=== PATIENT | female | born 1995 | race Caucasian/White ===

== ENCOUNTER 2016-10-06 22:22 | Emergency (ER) | payer SELFPAY ==
[2016-10-06 22:27] VITALS: BP 131/69
[2016-10-06] MEDS ORDERED: HYDROcodone/ACETAMIN 5-325 MG* 1 TAB PO ONE (22:53)
[2016-10-06] MEDS ORDERED: Ketorolac INJ* 60 MG/2 ML VIAL IM ONE (22:53)
--- NOTE | 2016-10-07 07:56 | RAD ---
HISTORY: Fall, right hip pain COMPARISONS: None VIEWS: 3, Frontal view of the pelvis with frontal and frog-leg views of the right hip FINDINGS: BONE DENSITY: Normal. BONES: There is no displaced fracture. JOINTS: There is no arthropathy. ALIGNMENT: There is no dislocation. SOFT TISSUES: Unremarkable. OTHER FINDINGS: None. IMPRESSION: NO RADIOGRAPHIC EVIDENCE FOR HIP FRACTURE. X-RAYS MAY BE NEGATIVE WITH NONDISPLACED HIP FRACTURE, IF THERE IS PERSISTENT CLINICAL CONCERN, RECOMMEND CONSIDERATION OF MRI. IN THE SETTING OF CONTRAINDICATION TO MRI OR LIMITATION IN EMERGENT ACCESS TO MRI, CT WOULD BE SUGGESTED.
--- NOTE | 2016-10-07 07:56 | RAD ---
HISTORY: Right knee injury COMPARISONS: None VIEWS: 4, Frontal, lateral, axial, and oblique views of the right main FINDINGS: BONE DENSITY: Normal. BONES: There is no displaced fracture. JOINTS: There is no arthropathy. There is no suprapatellar joint effusion or lipohemarthrosis. ALIGNMENT: There is no dislocation. SOFT TISSUES: Unremarkable. OTHER FINDINGS: None. IMPRESSION: NO ACUTE OSSEOUS INJURY. IF SYMPTOMS PERSIST, RECOMMEND REPEAT IMAGING.
--- NOTE | 2016-10-08 17:29 | ED ---
Lower Extremity - HPI Summary HPI Summary: Patient is an otherwise healthy 21y0 F presenting with right hip and knee pain after falling from her horse. She has not taken anything for the pain. Pain is 8/10 and does not radiate. Denies numbness, tingling, color or temperature changes. She is ambulating, but with pain. Denies radiation of pain, hitting head or LOC. No deformities noted. - History of Current Complaint Chief Complaint: EDExtremityLower Stated Complaint: RT LEG INJURY Time Seen by Provider: 10/06/16 22:31 Hx Obtained From: Patient Mechanism Of Injury: Direct Blow Onset of Pain: Immediate Onset/Duration: Hours Severity Initially: Moderate Severity Currently: Moderate Pain Intensity: 6 Pain Scale Used: 0-10 Numeric Timing: Constant Location: Is Discrete @ - right hip and right knee Character Of Pain: Aching Associated Signs And Symptoms: Positive: Negative Aggravating Factor(s): Standing, Ambulation, Movement, Weight Bearing Alleviating Factor(s): Rest Able to Bear Weight: Yes - Risk Factors Gout Risk Factors: Negative DVT Risk Factors: Negative Septic Arthritis Risk Factor: Negative - Allergies/Home Medications Allergies/Adverse Reactions: Allergies Allergy/AdvReac Type Severity Reaction Status Date / Time No Known Allergies Allergy Verified 10/16/15 18:37 PMH/Surg Hx/FS Hx/Imm Hx Previously Healthy: Yes Endocrine/Hematology History: Denies: Hx Anticoagulant Therapy, Hx Diabetes Cardiovascular History: Denies: Hx Hypertension History: Denies: Hx Renal Disease - Immunization History Hx Pertussis Vaccination: No Immunizations Up to Date: Unable to Obtain/Confirm Infectious Disease History: No Infectious Disease History: Denies: Traveled Outside the [place] in Last 30 Days - Social History Occupation: Unemployed Lives: With Family Alcohol Use: None Hx Substance Use: No Substance Use Type: Reports: None Hx Tobacco Use: Yes - half pack per day Smoking Status (MU): Light Every Day Tobacco Smoker Type: Cigarettes Have You Smoked in the Last Year: Yes Review of Systems Constitutional: Negative Eyes: Negative Cardiovascular: Negative Respiratory: Negative Gastrointestinal: Negative Positive: no symptoms reported, see HPI Positive: Arthralgia, Myalgia Skin: Negative Neurological: Negative Psychological: Normal All Other Systems Reviewed And Are Negative: Yes Physical Exam Triage Information Reviewed: Yes Vital Signs On Initial Exam: Initial Vitals Temp Pulse Resp BP Pulse Ox 97.8 F 95 22 131/69 100 07/07/17 22:23 10/06/16 22:23 10/06/16 22:23 10/06/16 22:23 10/06/16 22:23 Vital Signs Reviewed: Yes Appearance: Positive: Well-Appearing, Well-Nourished Skin: Positive: Warm, Skin Color Reflects Adequate Perfusion Head/Face: Positive: Normal Head/Face Inspection Eyes: Positive: Normal, LOIS ENT: Positive: Hearing grossly normal Neck: Positive: Supple, No Lymphadenopathy Respiratory/Lung Sounds: Positive: Clear to Auscultation, Breath Sounds Present Cardiovascular: Positive: Normal, RRR Musculoskeletal: Positive: Pain @ - right hip and palpation, knee on palpation Neurological: Positive: Normal, Sensory/Motor Intact, Alert, Oriented to Person Place, Time, Speech Normal Psychiatric: Positive: Normal Diagnostics - Vital Signs Vital Signs Temp Pulse Resp BP Pulse Ox 10/06/16 22:23 97.8 F 95 22 131/69 100 - Laboratory Lab Statement: Any lab studies that have been ordered have been reviewed, and results considered in the medical decision making process. Lower Extremity Course/Dx - Course Course Of Treatment: Patient sent to imaging. Xray negative for fracture or other acute findings. Hip xrays WNL. Knee was estefany wrapped to patient comfort to allow for immobilization for this period of time. Patient given orthopedic follow up in 5-7 days. Encouraged Ibuprofen 600mg three times daily with meals for pain. Return precautions given. Educated patient regarding ankle injuries and healing time and the possibility of further evaluation and imaging as orthopedist sees fit. - Diagnoses Differential Diagnosis/HQI/PQRI: Positive: Dislocation, Fracture (Closed), Fracture (Open), Sprain, Strain Provider Diagnoses: Fall from horse Discharge - Discharge Plan Condition: Stable Disposition: HOME Patient Education Materials: Hip Pain (ED) Referrals: No Primary Care Phys,NOPCP [Primary Care Provider] - Additional Instructions: Follow up with PCP Ibuprofen 600mg three times daily Images - Images Full Body (No Head): 1 - pain on palpation with standing and ambulation 2 - same as above
== END 2016-10-07 00:43 | disposition home or self-care (01) ==
LOC: ED 22:22
DX: M25.551 Pain in right hip (principal); M25.561 Pain in right knee; V80.010A Animal-rider injured by fall from or being thrown from horse in noncollision accident, initial encounter; F17.210 Nicotine dependence, cigarettes, uncomplicated
CPT/HCPCS: 96372; 99282; J1885

== ENCOUNTER → 2016-11-13 22:27 | Emergency (ER) | payer SELFPAY ==
[~2016-11-13 22:27] MED LIST: Amoxicillin PO (*) 250 MG CAP PO ONE; HYDROcodone/ACETAMIN 5-325 MG* 1 TAB PO ONE; Ketorolac INJ* 60 MG/2 ML VIAL IM ONE; Rizatriptan (NF) 5 MG TAB PO ONE
--- NOTE | 2016-11-14 00:29 | ED ---
Throat Pain/Nasal Congestion - HPI Summary HPI Summary: Pt here w/ Lt lower tooth pain x 1 week, intolerable tonight. Pain is so bad, triggered a migraine which she reports is only successfully treated with maxalt. H/o migraines since injury to head by horse. Reports her wisdom teeth are coming in on Lt lower jaw and created a hole in her tooth where she's having pain now. Pain with eating, air exposure, etc. Radiating into jaw, ear and down neck. Feels hot and cold but no debbie fever. Denies discharge into mouth, nausea, vomiting, neck pain. She has tried oragel which was helping for a while but not tonight. She also been taking ibuprofen and acetaminophen w/ some relief but only brief. Reports she shoved a chewable tylenol into the hole in her tooth and that helped for a little while. Took 2 of her boyfriend's leftover anbx (bactrim?) w/o relief. - History of Current Complaint Chief Complaint: EDDentalPain Time Seen by Provider: 11/13/16 23:22 Hx Obtained From: Patient, Family/Compounding Technician - boyfriend - Allergies/Home Medications Allergies/Adverse Reactions: Allergies Allergy/AdvReac Type Severity Reaction Status Date / Time No Known Allergies Allergy Verified 10/16/15 18:37 PMH/Surg Hx/FS Hx/Imm Hx Previously Healthy: Yes Endocrine/Hematology History: Denies: Hx Anticoagulant Therapy, Hx Diabetes, Autoimmune Disease Cardiovascular History: Denies: Hx Hypertension History: Denies: Hx Renal Disease Neurological History: Reports: Hx Migraine - s/p head injury Infectious Disease History: No Infectious Disease History: Denies: Traveled Outside the [place] in Last 30 Days - Family History Known Family History: Positive: None - Social History Occupation: Unemployed Lives: With Family Alcohol Use: None Hx Substance Use: No Substance Use Type: Reports: None Hx Tobacco Use: Yes - half pack per day Smoking Status (MU): Current Every Day Smoker Type: Cigarettes Have You Smoked in the Last Year: Yes Review of Systems Constitutional: Other - see HPI Eyes: Negative Negative: Photophobia, Blurred Vision, Diplopia Positive: Dental Pain - see HPI, Ear Ache Cardiovascular: Negative Negative: Chest Pain Respiratory: Negative Negative: Shortness Of Breath Gastrointestinal: Negative Positive: no symptoms reported Negative: Arthralgia - denies jaw pain Skin: Negative Positive: Headache - see HPI. Negative: Weakness, Paresthesia, Numbness, Syncope, Slurred Speech Positive: Anxious All Other Systems Reviewed And Are Negative: Yes Physical Exam Triage Information Reviewed: Yes Vital Signs On Initial Exam: Initial Vitals Temp Pulse Resp BP Pulse Ox 98.4 F 94 15 119/67 99 11/13/16 22:30 11/13/16 22:30 11/13/16 22:30 11/13/16 22:30 11/13/16 22:30 Vital Signs Reviewed: Yes Appearance: Positive: Well-Appearing, Well-Nourished, Pain Distress Skin: Positive: Warm, Dry - no edema, no erythema over Lt side of face/neck Head/Face: Positive: Normal Head/Face Inspection Eyes: Positive: Normal, EOMI, Conjunctiva Clear. Negative: Conjunctiva Inflammed, Discharge ENT: Positive: Normal ENT inspection, Hearing grossly normal, Pharynx normal, TMs normal. Negative: Nasal congestion, Nasal drainage, Tonsillar swelling, Tonsillar exudate Dental: Positive: Gross Decay/Caries @ - lateral aspect of #18 missing (appears to be from decay as remaining tooth is thin and discolored - no erythema, no d/c , no edema of surrounding gingiva Neck: Positive: Supple, No Lymphadenopathy, Tenderness @ - Lt SCM Respiratory/Lung Sounds: Positive: Breath Sounds Present. Negative: Stridor Cardiovascular: Positive: Normal, RRR Musculoskeletal: Positive: Normal, Strength/ROM Intact Neurological: Positive: Normal, Sensory/Motor Intact, Alert, Oriented to Person Place, Time, CN Intact II-III Psychiatric: Positive: Anxious Procedures - Procedure Summary Procedure Summary: #18 w/ dycal sealant - pt tolerated well and reports improved dental pain Diagnostics - Vital Signs Vital Signs Temp Pulse Resp BP Pulse Ox 11/13/16 22:30 98.4 F 94 15 119/67 99 - Laboratory Lab Statement: Any lab studies that have been ordered have been reviewed, and results considered in the medical decision making process. Re-Evaluation - Re-Evaluation First Eval Change: Improved EENT Course/Dx - Diagnoses Provider Diagnoses: Pain due to dental caries, Headache Discharge - Discharge Plan Condition: Stable Disposition: HOME Prescriptions: Amoxicillin PO (*) [Amoxicillin 500 MG CAP*] 500 mg PO TID #30 cap Patient Education Materials: Toothache (ED) Referrals: No Primary Care Phys,NOPCP [Primary Care Provider] - Additional Instructions: Do not remove temporary sealant from tooth You may take ibuprofen with food for pain Follow-up with dentist tomorrow - call in the morning to schedule an appointment OSWALDO
[2016-11-14 01:42] VITALS: BP 122/80
== END | disposition home or self-care (01) ==
LOC: ED 22:27
DX: K02.9 Dental caries, unspecified (principal); K08.89 Other specified disorders of teeth and supporting structures; R51 Headache; F17.210 Nicotine dependence, cigarettes, uncomplicated
CPT/HCPCS: 96372; 99282; A9270-GY; J1885

== ENCOUNTER 2017-04-01 12:30 | Emergency (ER) | payer SELFPAY ==
--- NOTE | 2017-04-01 13:11 | UC ---
Respiratory Complaint HPI - HPI Summary HPI Summary: 21 year old female presents with severe abdominal pain and possible . I will send her to the er to rule out ectopic. - History of Current Complaint Stated Complaint: COUGH Time Seen by Provider: 04/01/17 13:11 Hx Obtained From: Patient Onset/Duration: Sudden Onset Severity Initially: Moderate Severity Currently: Moderate Pain Scale Used: 0-10 Numeric - 7 Character: Cough: Nonproductive Alleviating Factors: Bronchodilator Associated Signs And Symptoms: Positive: Wheezing - Allergies/Home Medications Allergies/Adverse Reactions: Allergies Allergy/AdvReac Type Severity Reaction Status Date / Time No Known Allergies Allergy Verified 04/01/17 13:21 Home Medications: Home Medications NK [No Home Medications Reported] 04/01/17 [History Confirmed 04/01/17] PMH/Surg Hx/FS Hx/Imm Hx Previously Healthy: Yes Other History Of: Negative For: Anticoagulant Therapy - Family History Known Family History: Positive: None - Social History Alcohol Use: None Substance Use Type: None Smoking Status (MU): Current Every Day Smoker Type: Cigarettes Have You Smoked in the Last Year: Yes Household Exposure Type: Cigarettes Review of Systems Constitutional: Negative Skin: Negative Eyes: Negative ENT: Nasal Discharge, Sinus Congestion, Sinus Pain/Tenderness Respiratory: Negative Cardiovascular: Negative Gastrointestinal: Abdominal Pain Genitourinary: Negative Motor: Negative Neurovascular: Negative Musculoskeletal: Negative Neurological: Negative Psychological: Negative All Other Systems Reviewed And Are Negative: Yes Physical Exam Triage Information Reviewed: Yes Vital Signs Reviewed: Yes Eye Exam: Normal ENT Exam: Normal Dental Exam: Normal Neck exam: Normal Neck: Positive: 1 Respiratory Exam: Normal Cardiovascular Exam: Normal Abdomen Description: Positive: Other: - rlq pain Musculoskeletal Exam: Normal Neurological Exam: Normal Psychological Exam: Normal Skin Exam: Normal Respiratory Course/Dx - Differential Dx/Diagnosis Provider Diagnoses: rlq pain. Discharge - Discharge Plan Condition: Stable Disposition: OTHER Discharge Disposition Comment: patient suggested to go to the er Patient Education Materials: (ED) Referrals: No Primary Care Phys,NOPCP [Primary Care Provider] - Additional Instructions: Patient suggested to go to the er for abdominal pain and positive test.
[2017-04-01 13:21] VITALS: BP 103/81
== END 2017-04-01 13:59 ==
LOC: UCEAST 12:30
DX: O99.89 Other specified diseases and conditions complicating pregnancy, childbirth and the puerperium (principal); O99.330 Smoking (tobacco) complicating pregnancy, unspecified trimester; R10.31 Right lower quadrant pain; R06.02 Shortness of breath; R05 Cough; Z3A.00 Weeks of gestation of pregnancy not specified
CPT/HCPCS: 81003; 81025; 99212; G0463

== ENCOUNTER 2017-04-01 16:25 | Emergency (ER) | payer SELFPAY ==
[2017-04-01 16:32] VITALS: BP 121/51
[2017-04-01 17:53] LABS: ABS Basophils 0.1 10^3/ul (0-0.2); ABS Eosinophils 0.1 10^3/ul (0-0.6); ABS Monocytes 0.9 10^3/ul (0-0.8); ABS Neutrophils 5.7 10^3/ul (1.5-7.7); ABS Nucleated RBC 0 10^3/ul; Hematocrit 41 % (35-47); Hemoglobin 13.8 g/dl (12.0-16.0); Lymphocyte % 23.3 % (25-47); Mean Corpuscular HGB Conc 34 g/dl (31-36); Mean Corpuscular Hemoglobin 30 pg (27-31); Mean Corpuscular Volume 88 fL (80-97); Mean Platelet Volume 10 um3 (7.4-10.4); Nucleated Red Blood Cells % 0; Platelet Count 199 10^3/ul (150-450); Red Blood Count 4.61 10^6/ul (4.0-5.4); Red Cell Distribution Width 14 % (10.5-15); White Blood Count 8.7 10^3/ul (3.5-10.8)
--- NOTE | 2017-04-01 21:24 | ED ---
Triston Copeland Julia, scribed for Connor Mojica MD on 04/01/17 at 1832 . Abdominal Pain/Female - HPI Summary HPI Summary: This patient is a 21 year old F presenting to [facility] with a chief complaint of LLQ abdominal pain since 03/29/17.The patient rates the pain 6/10 in severity. Symptoms aggravated by nothing. Symptoms alleviated by nothing. Patient reports productive cough with sputum described as chunky brown. Patient is currently , but is unaware of how long she has been , and states that her LNMP was 03/05/17. - History of Current Complaint Chief Complaint: EDAbdPain Stated Complaint: ABD PAIN Time Seen by Provider: 04/01/17 17:19 Hx Obtained From: Patient Hx Last Menstrual Period: 03/07/17 Onset/Duration: Lasting Days Timing: Constant Pain Intensity: 6 Pain Scale Used: 0-10 Numeric Location: Discrete At: LLQ Aggravating Factor(s): Nothing Alleviating Factor(s): Nothing Associated Signs and Symptoms: Positive: Other: - productive cough Allergies/Adverse Reactions: Allergies Allergy/AdvReac Type Severity Reaction Status Date / Time No Known Allergies Allergy Verified 04/01/17 13:21 PMH/Surg Hx/FS Hx/Imm Hx Endocrine/Hematology History: Denies: Hx Anticoagulant Therapy, Hx Diabetes Cardiovascular History: Denies: Hx Hypertension History: Denies: Hx Renal Disease Neurological History: Reports: Hx Migraine - s/p head injury - Surgical History Surgery Procedure, Year, and Place: Right Knee Surgery Infectious Disease History: No Infectious Disease History: Denies: Traveled Outside the [place] in Last 30 Days - Family History Known Family History: Positive: None - Patient denies relevant family history. - Social History Alcohol Use: Rare Hx Substance Use: No Substance Use Type: Reports: None Hx Tobacco Use: Yes - half pack per day Smoking Status (MU): Heavy Every Day Tobacco Smoker Type: Cigarettes Amount Used/How Often: 1/2ppd Have You Smoked in the Last Year: Yes Review of Systems Positive: Cough - productive Positive: Abdominal Pain - LLQ All Other Systems Reviewed And Are Negative: Yes Physical Exam - Summary Physical Exam Summary: Appearance: The patient is well-nourished in no acute distress and in no acute pain. Skin: The skin is warm and dry and skin color reflects adequate perfusion. HEENT: The head is normocephalic and atraumatic. The pupils are equal and reactive. The conjunctivae are clear and without drainage. Nares are patent and without drainage. Mouth reveals moist mucous membranes and the throat is without erythema and exudate. The external ears are intact. The ear canals are patent and without drainage. The tympanic membranes are intact. Neck: the neck is supple with full range of motion and non-tender. There are no carotid bruits. There is no neck vein distension. Respiratory: Chest is non-tender. Lungs are clear to auscultation and breath sounds are symmetrical and equal. Cardiovascular: Heart is regular rate and rhythm. There is no murmur or rub auscultated. There is no peripheral edema and pulses are symmetrical and equal. Abdomen: The abdomen is soft with mild tenderness in LLQ. There are normal bowel sounds heard in all four quadrants and there is no organomegaly palpated. Musculoskeletal: There is no back tenderness noted. Extremities are non-tender with full range of motion. There is good capillary refill. There is no peripheral edema or calf tenderness elicited. Neurological: Patient is alert and oriented to person, place and time. The patient has symmetrical motor strength in all four extremities. Cranial nerves are grossly intact. Deep tendon reflexes are symmetrical and equal in all four extremities. Psychiatric: The patient has an appropriate affect and does not exhibit any anxiety or depression. Triage Information Reviewed: Yes Vital Signs On Initial Exam: Initial Vitals Temp Pulse Resp BP Pulse Ox 97.7 F 86 16 121/51 100 04/01/17 16:26 04/01/17 16:26 04/01/17 16:26 04/01/17 16:26 04/01/17 16:26 Vital Signs Reviewed: Yes - Gato Coma Scale Coma Scale Total: 15 Diagnostics - Vital Signs Vital Signs Temp Pulse Resp BP Pulse Ox 04/01/17 16:26 97.7 F 86 16 121/51 100 - Laboratory Lab Results: Lab Results 04/01/17 04/01/17 Range/Units 17:45 17:45 WBC 8.7 (3.5-10.8) 10^3/ul RBC 4.61 (4.0-5.4) 10^6/ul Hgb 13.8 (12.0-16.0) g/dl Hct 41 (35-47) % MCV 88 (80-97) fL MCH 30 (27-31) pg MCHC 34 (31-36) g/dl RDW 14 (10.5-15) % Plt Count 199 (150-450) 10^3/ul MPV 10 (7.4-10.4) um3 Neut % (Auto) 65.2 (38-83) % Lymph % (Auto) 23.3 L (25-47) % Graves % (Auto) 9.9 H (1-9) % Eos % (Auto) 1.0 (0-6) % Baso % (Auto) 0.6 (0-2) % Absolute Neuts (auto) 5.7 (1.5-7.7) 10^3/ul Absolute Lymphs (auto) 2.0 (1.0-4.8) 10^3/ul Absolute Monos (auto) 0.9 H (0-0.8) 10^3/ul Absolute Eos (auto) 0.1 (0-0.6) 10^3/ul Absolute Basos (auto) 0.1 (0-0.2) 10^3/ul Absolute Nucleated RBC 0 10^3/ul Nucleated RBC % 0 Sodium 136 (133-145) mmol/L Potassium 3.8 (3.5-5.0) mmol/L Chloride 103 (101-111) mmol/L Carbon Dioxide 28 (22-32) mmol/L Anion Gap 5 (2-11) mmol/L BUN 11 (6-24) mg/dL Creatinine 0.84 (0.51-0.95) mg/dL Est GFR ( Amer) 108.1 (>60) Est GFR (Non-Af Amer) 84.0 (>60) BUN/Creatinine Ratio 13.1 (8-20) Glucose 84 (70-100) mg/dL Calcium 9.1 (8.6-10.3) mg/dL Total Bilirubin 0.60 (0.2-1.0) mg/dL AST 14 (13-39) U/L ALT 8 (7-52) U/L Alkaline Phosphatase 69 (34-104) U/L C-Reactive Protein 3.55 (< 5.00) mg/L Total Protein 7.1 (6.4-8.9) g/dL Albumin 4.1 (3.2-5.2) g/dL Globulin 3.0 (2-4) g/dL Albumin/Globulin Ratio 1.4 (1-3) Beta HCG, Quant 279.15 mIU/mL Result Diagrams: 04/01/17 17:45 04/01/17 17:45 Lab Statement: Any lab studies that have been ordered have been reviewed, and results considered in the medical decision making process. Abdominal Pain Fem Course/Dx - Course Course Of Treatment: Ms. Cabrera went to [facility] because she has a cough, congestion and fevers. She also reported some LLQ pain. She was found to be prior to getting a CXR and sent to the ED. Her HCG is 279 and not likely to be contributing to the abdominal pain. She is mildly if at all tender. - Diagnoses Provider Diagnoses: URI (upper respiratory infection), Discharge - Discharge Plan Condition: Stable Disposition: HOME Patient Education Materials: (ED), Upper Respiratory Infection (ED) Referrals: No Primary Care Phys,NOPCP [Primary Care Provider] - Additional Instructions: The patient is instructed to follow up with Primary Care Provider in the next week. RETURN TO THE EMERGENCY DEPARTMENT FOR CHANGING OR WORSENING SYMPTOMS. The documentation as recorded by the Triston garcia Julia accurately reflects the service I personally performed and the decisions made by me, Connor Mojica MD.
== END 2017-04-01 18:49 | disposition home or self-care (01) ==
LOC: ED 16:25
DX: O26.899 Other specified pregnancy related conditions, unspecified trimester (principal); J06.9 Acute upper respiratory infection, unspecified; O99.330 Smoking (tobacco) complicating pregnancy, unspecified trimester; F17.210 Nicotine dependence, cigarettes, uncomplicated; Z3A.00 Weeks of gestation of pregnancy not specified
CPT/HCPCS: 36415; 80053; 84702; 85025; 86140; 99282

== ENCOUNTER 2017-05-10 14:02 | Emergency (ER) | payer SELFPAY ==
[2017-05-10 15:08] LABS: ABS Basophils 0 10^3/ul (0-0.2); ABS Eosinophils 0 10^3/ul (0-0.6); ABS Lymphocytes 1.8 10^3/ul (1.0-4.8); ABS Monocytes 0.5 10^3/ul (0-0.8); ABS Neutrophils 5.1 10^3/ul (1.5-7.7); ABS Nucleated RBC 0 10^3/ul; Eosinophil % 0.4 % (0-6); Hematocrit 39 % (35-47); Hemoglobin 13.1 g/dl (12.0-16.0); Lymphocyte % 23.7 % (25-47); Mean Corpuscular HGB Conc 34 g/dl (31-36); Mean Corpuscular Hemoglobin 30 pg (27-31); Mean Corpuscular Volume 90 fL (80-97); Mean Platelet Volume 10 um3 (7.4-10.4); Nucleated Red Blood Cells % 0; Platelet Count 186 10^3/ul (150-450); Red Cell Distribution Width 14 % (10.5-15); White Blood Count 7.4 10^3/ul (3.5-10.8)
[2017-05-10 15:18] LABS: INR 0.98 (0.77-1.02)
[2017-05-10 15:23] LABS: EGFR Non-African American 99.5 (>60)
--- NOTE | 2017-05-10 15:51 | RAD ---
INDICATION: , vaginal bleeding. COMPARISON: There are no prior studies available for comparison. TECHNIQUE: Multiple real-time transvaginal images of the pelvis were obtained. FINDINGS: This exam demonstrates an early intrauterine . A pole and yolk sac are visualized. The heart rate was 169 beats per minute. There is a small hypoechoic fluid collection adjacent to the gestational sac measuring 2.5 x 0.4 x 0.5 cm most consistent with a small subchorionic hematoma. The crown-rump length measured 3.19 cm corresponding to an estimated gestational age of 10 weeks 1 day. The mean sac diameter measured 3.58 cm corresponding to an estimate gestational age of 9 weeks 1 day. The ovaries were not visualized. No free intraperitoneal fluid is seen. IMPRESSION: 1. THERE IS AN EARLY VIABLE INTRAUTERINE WITH AN ESTIMATED GESTATIONAL AGE OF 10 WEEKS 1 DAY BY CROWN-RUMP LENGTH. 2. SMALL SUBCHORIONIC HEMATOMA.
[2017-05-10] MEDS ORDERED: Acetaminophen TAB* 325 MG PO ONE (17:00)
[2017-05-10 17:15] VITALS: BP 116/55
--- NOTE | 2017-05-14 10:07 | ED ---
- HPI Summary HPI Summary: Patient is an otherwise healthy 22-year-old female who presents to the ED with abdominal pain in slight spotting. Positive test 2 months ago. She has a follow-up with [facility] or [facility] in one week. Denies any nausea, vomiting, constipation, diarrhea. Denies any headache or dizziness. She is not bleeding through any pads and states it is just light spotting. Cramping is diffuse in the abdomen in and into the back. - History of Current Complaint Chief Complaint: EDOBProblems Stated Complaint: WITH STOMACH PAIN Time Seen by Provider: 05/10/17 16:31 Hx Obtained From: Patient Chief Complaint: Concern for Embryonic Dem Onset/Duration: Started Hours Ago Timing: Constant Severity: Mild Current Severity: Mild Pain Intensity: 0 Aggravating Factors: Coughing Associated Signs and Symptoms: Positive: Negative - Assessment SAB: 0 IEA: 0 - Additional Pertinent History Maternal Blood Type and Rh: O Positive - Allergies/Home Medications Allergies/Adverse Reactions: Allergies Allergy/AdvReac Type Severity Reaction Status Date / Time No Known Allergies Allergy Verified 04/01/17 13:21 PMH/Surg Hx/FS Hx/Imm Hx Previously Healthy: Yes Endocrine/Hematology History: Denies: Hx Anticoagulant Therapy, Hx Diabetes Cardiovascular History: Denies: Hx Hypertension History: Denies: Hx Renal Disease Neurological History: Reports: Hx Migraine - s/p head injury - Surgical History Surgery Procedure, Year, and Place: Right Knee Surgery Infectious Disease History: No Infectious Disease History: Denies: Traveled Outside the [place] in Last 30 Days - Family History Known Family History: Positive: None - Patient denies relevant family history. - Social History Occupation: Employed Full-time Lives: With Family Alcohol Use: Rare Hx Substance Use: No Substance Use Type: Reports: None Hx Tobacco Use: Yes - half pack per day Smoking Status (MU): Heavy Every Day Tobacco Smoker Type: Cigarettes Amount Used/How Often: 1/2ppd Have You Smoked in the Last Year: Yes Review of Systems Constitutional: Negative Negative: Fever, Fatigue ENT: Negative Cardiovascular: Negative Positive: Abdominal Pain Genitourinary: Negative Positive: no symptoms reported, see HPI Musculoskeletal: Negative Neurological: Negative All Other Systems Reviewed And Are Negative: Yes Physical Exam - Physical Exam Triage Information Reviewed: Yes Vital Signs Reviewed: Yes Appearance: Positive: Well-Appearing, Well-Nourished Skin: Positive: Warm, Skin Color Reflects Adequate Perfusion Head/Face: Positive: Normal Head/Face Inspection Eyes: Positive: EOMI, LOIS, Conjunctiva Clear Neck: Positive: Supple, Nontender, No Lymphadenopathy Respiratory/Lung Sounds: Positive: Breath Sounds Present Cardiovascular: Positive: RRR, Pulses are Symmetrical in both Upper and Lower Extremities Musculoskeletal: Positive: Normal, Strength/ROM Intact Neurological: Positive: Speech Normal Psychiatric: Positive: Normal, Affect/Mood Appropriate Diagnostics - Vital Signs Vital Signs Temp Pulse Resp BP Pulse Ox 05/10/17 17:14 98.4 F 75 18 116/55 99 05/10/17 14:15 98.6 F 77 19 101/49 99 - Laboratory Lab Results: Lab Results 05/10/17 05/10/17 05/10/17 Range/Units 14:46 14:46 14:46 WBC 7.4 (3.5-10.8) 10^3/ul RBC 4.30 (4.0-5.4) 10^6/ul Hgb 13.1 (12.0-16.0) g/dl Hct 39 (35-47) % MCV 90 (80-97) fL MCH 30 (27-31) pg MCHC 34 (31-36) g/dl RDW 14 (10.5-15) % Plt Count 186 (150-450) 10^3/ul MPV 10 (7.4-10.4) um3 Neut % (Auto) 68.7 (38-83) % Lymph % (Auto) 23.7 L (25-47) % [place] % (Auto) 6.8 (1-9) % Eos % (Auto) 0.4 (0-6) % Baso % (Auto) 0.4 (0-2) % Absolute Neuts (auto) 5.1 (1.5-7.7) 10^3/ul Absolute Lymphs (auto) 1.8 (1.0-4.8) 10^3/ul Absolute Monos (auto) 0.5 (0-0.8) 10^3/ul Absolute Eos (auto) 0 (0-0.6) 10^3/ul Absolute Basos (auto) 0 (0-0.2) 10^3/ul Absolute Nucleated RBC 0 10^3/ul Nucleated RBC % 0 INR (Anticoag Therapy) 0.98 (0.77-1.02) APTT 34.2 (26.0-36.3) seconds Sodium 139 (133-145) mmol/L Potassium 3.8 (3.5-5.0) mmol/L Chloride 107 (101-111) mmol/L Carbon Dioxide 26 (22-32) mmol/L Anion Gap 6 (2-11) mmol/L BUN 6 (6-24) mg/dL Creatinine 0.72 (0.51-0.95) mg/dL Est GFR ( Amer) 128.0 (>60) Est GFR (Non-Af Amer) 99.5 (>60) BUN/Creatinine Ratio 8.3 (8-20) Glucose 72 (70-100) mg/dL Lactic Acid (0.5-2.0) mmol/L Calcium 9.4 (8.6-10.3) mg/dL Total Bilirubin 0.40 (0.2-1.0) mg/dL AST 9 L (13-39) U/L ALT 6 L (7-52) U/L Alkaline Phosphatase 48 (34-104) U/L Total Protein 6.8 (6.4-8.9) g/dL Albumin 4.1 (3.2-5.2) g/dL Globulin 2.7 (2-4) g/dL Albumin/Globulin Ratio 1.5 (1-3) Beta HCG, Quant 938895.00 mIU/mL Group A Strep Rapid (Negative) 05/10/17 05/10/17 Range/Units 14:46 17:12 WBC (3.5-10.8) 10^3/ul RBC (4.0-5.4) 10^6/ul Hgb (12.0-16.0) g/dl Hct (35-47) % MCV (80-97) fL MCH (27-31) pg MCHC (31-36) g/dl RDW (10.5-15) % Plt Count (150-450) 10^3/ul MPV (7.4-10.4) um3 Neut % (Auto) (38-83) % Lymph % (Auto) (25-47) % [place] % (Auto) (1-9) % Eos % (Auto) (0-6) % Baso % (Auto) (0-2) % Absolute Neuts (auto) (1.5-7.7) 10^3/ul Absolute Lymphs (auto) (1.0-4.8) 10^3/ul Absolute Monos (auto) (0-0.8) 10^3/ul Absolute Eos (auto) (0-0.6) 10^3/ul Absolute Basos (auto) (0-0.2) 10^3/ul Absolute Nucleated RBC 10^3/ul Nucleated RBC % INR (Anticoag Therapy) (0.77-1.02) APTT (26.0-36.3) seconds Sodium (133-145) mmol/L Potassium (3.5-5.0) mmol/L Chloride (101-111) mmol/L Carbon Dioxide (22-32) mmol/L Anion Gap (2-11) mmol/L BUN (6-24) mg/dL Creatinine (0.51-0.95) mg/dL Est GFR ( Amer) (>60) Est GFR (Non-Af Amer) (>60) BUN/Creatinine Ratio (8-20) Glucose (70-100) mg/dL Lactic Acid 0.4 L (0.5-2.0) mmol/L Calcium (8.6-10.3) mg/dL Total Bilirubin (0.2-1.0) mg/dL AST (13-39) U/L ALT (7-52) U/L Alkaline Phosphatase (34-104) U/L Total Protein (6.4-8.9) g/dL Albumin (3.2-5.2) g/dL Globulin (2-4) g/dL Albumin/Globulin Ratio (1-3) Beta HCG, Quant mIU/mL Group A Strep Rapid Negative (Negative) Result Diagrams: 05/10/17 14:46 05/10/17 14:46 Lab Statement: Any lab studies that have been ordered have been reviewed, and results considered in the medical decision making process. Course/Dx - Course Course Of Treatment: Patient is evaluated for intrauterine versus ectopic. She endorses some light spotting and cramping. Her serum under 14 weeks completed which shows there is an early viable intrauterine with an estimated gestational age of 10 weeks 1 day by crown-rump length. She is encouraged to follow up with [facility] and is to return if she is bleeding through more than 1 pad every few hours. She agrees with this plan and is okay for discharge at this time. Voices no concerns. - Diagnoses Provider Diagnoses: Vaginal spotting Discharge - Discharge Plan Condition: Stable Disposition: HOME Patient Education Materials: (ED) Referrals: No Primary Care Phys,NOPCP [Primary Care Provider] - Additional Instructions: Please follow up with [facility] as soon as possible If you develop worsening abdominal pain or bleeding through a pad an hour, return to the ED immediately I will call with any positive results from the strep throat. Tylenol 650mg three times daily for cramping.
== END 2017-05-10 17:14 | disposition home or self-care (01) ==
LOC: ED 14:02
DX: O26.851 Spotting complicating pregnancy, first trimester (principal); Z3A.14 14 weeks gestation of pregnancy; F17.210 Nicotine dependence, cigarettes, uncomplicated
CPT/HCPCS: 36415; 76801; 80053; 83605; 84702; 85025; 85610; 85730; 87651; 99282; A9270-GY

== ENCOUNTER 2017-08-19 18:14 | Emergency (ER) | payer OTHER ==
[2017-08-19] MEDS ORDERED: oxyCODONE/Acetamin 5/325 MG* TAB PO ONE (18:44)
--- NOTE | 2017-08-19 19:12 | RAD ---
HISTORY: Right leg injury COMPARISONS: None VIEWS: 4, Frontal, lateral, axial, and oblique views of the right knee FINDINGS: BONE DENSITY: Normal. BONES: There is no displaced fracture. JOINTS: There is no arthropathy. There is no suprapatellar joint effusion or lipohemarthrosis. ALIGNMENT: There is no dislocation. SOFT TISSUES: Unremarkable. OTHER FINDINGS: None. IMPRESSION: NO ACUTE OSSEOUS INJURY. IF SYMPTOMS PERSIST, RECOMMEND REPEAT IMAGING.
[2017-08-19 20:45] VITALS: BP 107/60
--- NOTE | 2017-08-19 20:46 | ED ---
Luis Copeland Elizabeth, scribed for Connor Mojica MD on 08/19/17 at 1839 . Lower Extremity - HPI Summary HPI Summary: This patient is a 22 year old F presenting to [facility] with a chief complaint of right leg pain that began earlier today. The patient reports that she was riding her horse doing barrels earlier today when the horse slipped and fell, causing the patient to hit her leg on a barrel. Per triage note, the patient injured her right lower extremity from hip to foot. The patient rates the pain 8 /10 in severity. Symptoms aggravated by straightening her leg. Symptoms alleviated by nothing. Patient reports the pain is the worst in her right knee. She also reports right hip pain, groin pain, and tingling sensation in her right foot. Per triage note, the patient has good tibial pulse and sensation upon arrival to [facility] [place] and the patient can bear weight on the injured extremity, but only with extreme pain. - History of Current Complaint Chief Complaint: EDExtremityLower Stated Complaint: RT LEG INJURY Time Seen by Provider: 08/19/17 18:27 Hx Obtained From: Patient Hx Last Menstrual Period: 03/07/17 Mechanism Of Injury: Direct Blow Onset of Pain: Minutes, Post Accident Onset/Duration: Minutes Severity Initially: Moderate Severity Currently: Moderate Pain Intensity: 8 Pain Scale Used: 0-10 Numeric Timing: Constant Location: Is Diffuse Associated Signs And Symptoms: Positive: Knee Pain Aggravating Factor(s): Weight Bearing Alleviating Factor(s): Nothing - Allergies/Home Medications Allergies/Adverse Reactions: Allergies Allergy/AdvReac Type Severity Reaction Status Date / Time No Known Allergies Allergy Verified 08/19/17 18:18 PMH/Surg Hx/FS Hx/Imm Hx Endocrine/Hematology History: Denies: Hx Anticoagulant Therapy, Hx Diabetes Cardiovascular History: Denies: Hx Hypertension History: Denies: Hx Renal Disease Neurological History: Reports: Hx Migraine - s/p head injury - Surgical History Surgery Procedure, Year, and Place: Right Knee Surgery Infectious Disease History: No Infectious Disease History: Denies: Traveled Outside the [place] in Last 30 Days - Family History Known Family History: Positive: None - Patient denies relevant family history. - Social History Alcohol Use: Rare Hx Substance Use: No Substance Use Type: Reports: None Hx Tobacco Use: Yes - half pack per day Smoking Status (MU): Heavy Every Day Tobacco Smoker Type: Cigarettes Amount Used/How Often: 1/2ppd Have You Smoked in the Last Year: Yes Review of Systems Negative: Epistaxis Negative: Chest Pain Negative: Shortness Of Breath Positive: Other - right knee pain, right hip pain, groin pain Neurological: Other - tingling sensation in her right foot Negative: Headache All Other Systems Reviewed And Are Negative: Yes Physical Exam - Summary Physical Exam Summary: Appearance: The patient is well-nourished in no acute distress and in no acute pain. Skin: The skin is warm and dry and skin color reflects adequate perfusion. HEENT: The head is normocephalic and atraumatic. The pupils are equal and reactive. The conjunctivae are clear and without drainage. Nares are patent and without drainage. Mouth reveals moist mucous membranes and the throat is without erythema and exudate. The external ears are intact. The ear canals are patent and without drainage. The tympanic membranes are intact. Neck: the neck is supple with full range of motion and non-tender. There are no carotid bruits. There is no neck vein distension. Respiratory: Chest is non-tender. Lungs are clear to auscultation and breath sounds are symmetrical and equal. Cardiovascular: Heart is regular rate and rhythm. There is no murmur or rub auscultated. There is no peripheral edema and pulses are symmetrical and equal. Abdomen: The abdomen is soft and non-tender. There are normal bowel sounds heard in all four quadrants and there is no organomegaly palpated. Musculoskeletal: There is no back tenderness noted. Extremities are non-tender with full range of motion. There is good capillary refill. There is no peripheral edema or calf tenderness elicited. Neurological: Patient is alert and oriented to person, place and time. The patient has symmetrical motor strength in all four extremities. Cranial nerves are grossly intact. Deep tendon reflexes are symmetrical and equal in all four extremities. Psychiatric: The patient has an appropriate affect and does not exhibit any anxiety or depression. Triage Information Reviewed: Yes Vital Signs On Initial Exam: Initial Vitals Temp Pulse Resp BP Pulse Ox 99.2 F 85 16 103/40 99 08/19/17 18:18 08/19/17 18:18 08/19/17 18:18 08/19/17 18:18 08/19/17 18:18 Vital Signs Reviewed: Yes Diagnostics - Vital Signs Vital Signs Temp Pulse Resp BP Pulse Ox 08/19/17 18:18 99.2 F 85 16 103/40 99 - Laboratory Lab Statement: Any lab studies that have been ordered have been reviewed, and results considered in the medical decision making process. - Radiology Knee XR Xray Interpretation: No Acute Changes - IMPRESSION: NO ACUTE OSSEOUS INJURY. IF SYMPTOMS PERSIST, RECOMMEND REPEAT IMAGING. Dr. Mojica has reviewed this report. Radiology Interpretation Completed By: Radiologist Re-Evaluation - Re-Evaluation 1st re-eval Re-Evaluation Time: 19:56 Change: Unchanged Comment: Discussed imaging results and course of treatment with the patient. Lower Extremity Course/Dx - Course Course Of Treatment: Ms. Gusman twisted her left knee and banged it against a barrel when falling from a horse. She was difficult to evaluate because of the pain. X-ray was negative and we were able to get her in an immobilizer and crutches. She will take ibuprofen and tramadol and F/U with Ortho. - Diagnoses Provider Diagnoses: Knee injury Discharge - Sign-Out/Discharge Documenting (check all that apply): Discharge/Admit/Transfer - Discharge Plan Condition: Stable Disposition: HOME Prescriptions: traMADol TAB* [Ultram*] 50 mg PO Q6HR PRN #20 tab MDD 4 PRN Reason: Pain Patient Education Materials: Ibuprofen (By mouth), Knee Pain (ED), Knee Immobilizer (ED) Forms: *Gen. Provider Communication Referrals: Patric Calero MD [Medical Doctor] - No Primary Care Phys,NOPCP [Medical Doctor] - Additional Instructions: Follow up with Dr. Calero next week. - Billing Disposition and Condition Condition: STABLE Disposition: HOME The documentation as recorded by the Luis garcia Elizabeth accurately reflects the service I personally performed and the decisions made by , Connor Mojica MD.
== END 2017-08-19 20:45 | disposition home or self-care (01) ==
LOC: ED 18:14
DX: S89.91XA Unspecified injury of right lower leg, initial encounter (principal); V80.010A Animal-rider injured by fall from or being thrown from horse in noncollision accident, initial encounter; W22.8XXA Striking against or struck by other objects, initial encounter; Y93.52 Activity, horseback riding; Y92.9 Unspecified place or not applicable; F17.210 Nicotine dependence, cigarettes, uncomplicated
CPT/HCPCS: 99282; A9270-GY